=== PATIENT | male | born 1955 | race Caucasian/White ===

== ENCOUNTER → 2018-11-26 | Outpatient (CLI) | payer BC | LOC: GIMAGING 16:15 | PROVIDERS: ATTEND Nurse Practitioner Acute Care | DX: M25.562 Pain in left knee (principal); R93.7 Abnormal findings on diagnostic imaging of other parts of musculoskeletal system | CPT/HCPCS: 73564-PO ==

== ENCOUNTER 2018-11-27 15:31 | Inpatient (IN) | payer BC ==
[2018-11-27] MEDS ORDERED: POLYMYXIN B SULFATE 500,000 UNIT/10 ML SYR IRR ONE (16:12)
[2018-11-27] MEDS ORDERED: BUPIVACAINE/EPI 0.5% 30 ML SDV ONE (16:12)
[2018-11-27] MEDS ORDERED: BACITRACIN 50,000 UNITS/10 ML SYR IRR ONE (16:13)
[2018-11-27] MEDS ORDERED: MIDAZOLAM 2 MG/2 ML VIAL IVP ONE (16:29)
--- NOTE | 2018-11-27 16:32 | PDANEPAE ---
ANE History of Present Illness 63 year with infected left knee ANE Past Medical History - Pulmonary History Hx Sleep Apnea: No ANE Review of Systems Review of systems is: negative Review of Systems: - Exercise capacity Exercise capacity: <4 METS ANE Patient History - Allergies Allergies/Adverse Reactions: No Known Allergies Allergy (Unverified 11/27/18 16:14) - Home Medications Home Medications: Atorvastatin Calcium 20 mg PO 11/27/18 [Last Taken 11/26/18] Levothyroxine [Synthroid 88 mcg (*)] 88 mcg PO DAILY06 11/27/18 [Last Taken 03/12] Lisinopril 5 mg PO 11/27/18 [Last Taken 11/26/18] sulfaSALAzine [Sulfasalazine] 500 mg PO 11/27/18 [Last Taken 11/26/18] - NPO status NPO Since - Liquids (Date): 11/27/18 NPO Since - Liquids (Time): 11:22 NPO Since - Solids (Date): 11/26/18 NPO Since - Solids (Time): 20:30 - Anes Hx Anes Hx: no prior problems ANE Labs/Vital Signs - Vital Signs Blood Pressure: 129/80 Heart Rate: 86 Respiratory Rate: 16 O2 Sat (%): 97 Height: 180.34 cm Weight: 74.843 kg ANE Physical Exam - Airway Neck exam: FROM Mallampati Score: Class 1 - Pulmonary Pulmonary: no respiratory distress - Cardiovascular Cardiovascular: regular rate and rhythym - ASA Status ASA Status: II ANE Anesthesia Plan Anesthesia Plan: GA w LMA
--- NOTE | 2018-11-27 16:46 | PDHPUP ---
History & Physical Update H&P update statement: This history and physical update is based on an assessment of the patient which was completed after admission or registration (within 24 hours), but prior to the surgery/procedure. H&P update: H&P reviewed & patient examined, no change in patient's condition since H&P completed
[2018-11-27] MEDS ORDERED: PIPERACILLIN/TAZO 3.375 GM/DEX 50 ML IV ONE (16:52)
[2018-11-27] MEDS ORDERED: fentaNYL 100 MCG/2 ML INJ ONE ×2 (17:01→18:30)
[2018-11-27] MEDS ORDERED: PROPOFOL 200 MG/20 ML VIAL ONE (17:01)
[2018-11-27] MEDS ORDERED: TDAP ADULT 0.5 ML INJ (BOOSTRIX) IM ONE (18:23)
[2018-11-27] MEDS ORDERED: ONDANSETRON DISINTEGRATING 4 MG TAB PO PRN (18:23)
[2018-11-27] MEDS ORDERED: oxyCODONE IR 5 MG TAB PO PRN ×2 (18:23→18:24)
[2018-11-27] MEDS ORDERED: diphenhydrAMINE 25 MG CAP PO PRN (18:23)
[2018-11-27] MEDS ORDERED: ONDANSETRON 4 MG/2 ML VIAL IVP PRN ×2 (18:23→18:24)
[2018-11-27] MEDS ORDERED: PROMETHAZINE HCL 25 MG/ML INJ IVP PRN ×2 (18:23→18:24)
[2018-11-27] MEDS ORDERED: fentaNYL 100 MCG/2 ML INJ IVP PRN (18:24)
[2018-11-27] MEDS ORDERED: NALOXONE HCL 0.4 MG/ML INJ IVP PRN (18:24)
[2018-11-27] MEDS ORDERED: HYDROmorphONE/DILAUDID 2 MG/ML INJ IVP PRN (18:24)
--- NOTE | 2018-11-27 18:25 | POSTANESTH ---
Post Anesthetic Evaluation Cardiovascular Status: Normal, Stable Respiratory Status: Normal, Stable Level of Consciousness/Mental Status: Can Participate in Eval Pain Control: Adequate, Prn Tx Ordered Nausea/Vomiting Control: Adequate, Prn Tx Ordered Complications Possibly Related to Anesthesia: None Noted
[2018-11-27] MEDS ORDERED: LR 1,000 ML IV SCH (18:30)
[2018-11-27] MEDS ORDERED: HYDROCODONE/APAP 5/325 TAB ONE (18:44)
[2018-11-28] MEDS: ACETAMINOPHEN 325 MG TAB PO SCH ×5 (00:08→23:50)
[2018-11-28] MEDS: KETOROLAC 15 MG/1 ML SDV IVP SCH ×4 (00:09→18:17)
[2018-11-28] MEDS: PIPERACILLIN/TAZO 3.375 GM/DEX 50 ML IV SCH ×5 (00:11→23:50)
[2018-11-28 04:47] LABS: PLATELET COUNT 258 10^3/uL (150-400)
--- NOTE | 2018-11-28 05:51 | GOP ---
DATE OF OPERATION: 11/27/2018 SURGEON: Deondre Navarro MD ANESTHESIA: General. PREOPERATIVE DIAGNOSIS: 1. Left knee foreign body, possibly in joint. 2. Left knee possible septic knee. POSTOPERATIVE DIAGNOSIS: 1. Left knee infected foreign body. 2. Left knee septic arthritis. PROCEDURE PERFORMED: 1. Left knee arthrotomy and drainage for septic knee. 2. Left knee removal of foreign body from knee joint. FINDINGS: ESTIMATED BLOOD LOSS: Less than 5 cc. INDICATIONS: The patient is a 63-year-old male who yesterday was splitting wood in his yard. He fel t something hit his leg when he struck the wedge with the hammer, glanced down and saw there was manpreet valentine. He then went to urgent care where x-rays were taken and he was told to follow up for removal o f the foreign body. He contacted my office today. I reviewed the x-rays. The x-rays were very conc erning for a traumatic arthrotomy of the knee due to the proximity of the foreign body to the joint. I saw the patient in the clinic that same day. He had a tense ballotable effusion with increasing p ain throughout the day. He had difficulty bearing weight and difficulty moving his knee and these we re all Hallmark signs for developing septic knee. I felt that I and D urgently was indicated and gonzalo nned for I and D later that day. We discussed risks and benefits. Risks include pain, bleeding, inf ection, damage to surrounding structures, persistent infection, stiffness, weakness, need for further surgery, wound healing complications. He understood these risks and wished to proceed. DESCRIPTION OF PROCEDURE: The patient was seen in preoperative holding area, was given an opportunit y to ask more questions. All questions were answered. Consent was signed. Surgical site was marked . He was transferred to operative suite. Care was then taken to transfer patient from the rnorwood to the operating room table. Care was taken to pad all bony prominences. Time-out was called includin g surgical and anesthesia teams confirming the surgical site and procedure to be performed. Antibiot ics were withheld until cultures were taken. The left lower extremity was prepped and draped in the usual sterile fashion. He had a small, several millimeter puncture wound over the medial aspect of t he joint line. This was over the medial knee. X-rays showed this small foreign body at the joint li ne. I 1st marked out a small 1.5 cm incision over this puncture site. Prior to making incision, I d id aspirate the knee. I aspirated 60 cc of turbid thick synovial fluid. This had the appearance of s eptic synovial fluid. I then handed this off for cultures. Then gave a dose of Ancef prior to any i ncision. The leg was elevated to exsanguinate and the tourniquet was inflated to 300 mmHg. I then m ronda an incision over the puncture site. Carefully dissected down to the level of the joint capsule. I followed the traumatic rent and this was near to the capsule. There was a gush of turbid septic a ppearing fluid. I visualized the metal foreign body. This was essentially impaled in his capsule an d had punctured his capsule and this was thus a traumatic arthrotomy. After removing the foreign body , I took x-rays to confirm that it was gone. Then made a several centimeter incision over the medial parapatellar area. Carefully dissected down through the skin to the level of the joint, entered the joint through the retinaculum. Then began irrigating. I irrigated copiously with sterile saline ove r 6 L. I ensured that there was good flow through both arthrotomy sites. After irrigating, I then p laced a drain through out the lateral side. At this point, I then closed the capsule with #1 PDS and closed the skin with 2-0 nylon loose closure at the foreign body site and I left loosely closed with a Symoen drain. A sterile dressing was applied. The tourniquet was let down. All bleeding was co ntrolled. He tolerated procedure well and was taken to PACU in stable condition. POSTOP CONDITION: Stable. POSTOPERATIVE PLAN: He will be admitted for IV antibiotics. I spoke to the ID physician prior to [facility] for recommendations on antibiotics. Per the patient's , the wedge was kept in his yard whe re he had possible contamination with horse manure. Thus, we decided on Zosyn. We will follow him c linically and we will follow cultures. /[id number]/MODL
[2018-11-28] MEDS: FAMOTIDINE 20 MG TAB PO SCH (09:06)
--- NOTE | 2018-11-28 09:24 | SOAPPROG ---
SOAP Progress Note Assessment/Plan: Assessment: POD#1 s/p I&D L knee and removal foreign body -GS 3+ pmn, no organisms -knee feels better this am Plan: -IV Zosyn -Await cultures -ID to see this am -Cont drain 11/28/18 09:14 Subjective: Knee feels great. No pain. Was able to sleep Objective: Vital Signs Temp Pulse Resp BP Pulse Ox 36.5 C 76 19 117/61 97 11/28/18 08:00 11/28/18 08:00 11/28/18 08:00 11/28/18 08:00 11/28/18 08:00 Microbiology 11/27/18 17:27 Gram Stain - Final Synovial Fluid - Aspirate Laboratory Results 11/28/18 04:18 11/27/18 11/28/18 11/29/18 05:59 05:59 05:59 Intake Total 1215 1600 Output Total 305 Balance 910 1600 LLE -drain in place, holding suction. Serosang output -NV intact -no pain with gentle passive ROM - ICD10 Worksheet Patient Problems: Problems Problem Status Onset Septic arthritis of knee Acute - ICD10 Problem Qualifiers (1) Septic arthritis of knee Qualifiers: Septic arthritis organism: due to unspecified organism Laterality: left Qualified Code(s): M00.9 - Pyogenic arthritis, unspecified
--- NOTE | 2018-11-28 09:50 | ASMTCMCOM ---
CM Note CM Note Notes: Pt had debridement for L septic knee, foriegn body in knee. ID consulting, awaiting culture. PT/OT evals ordered. CM to follow, d/c needs TBD. Date Signed: 11/28/2018 09:49 AM Electronically Signed By:HERB Duvall
--- NOTE | 2018-11-28 09:53 | PDMN ---
Medical Necessity Medical necessity: [facility] [place]: M605 septic arthritis: 3 days foreign body ( metal ) in knee joint urgent I/D needed, suspect septic arthritis. - OP: L knee arthrotomy and drainage for septic knee, L knee removal of foreign body from knee joint- I/ D consult pending,
--- NOTE | 2018-11-28 12:33 | GCON ---
INPATIENT INFECTIOUS DISEASE CONSULTATION REFERRING PHYSICIAN: Deondre Navarro MD REASON FOR REFERRAL: Left knee septic arthritis. HISTORY OF PRESENT ILLNESS: Patient is a 63-year-old male who is in normally very good health, who s uffered a traumatic arthrotomy of the left knee after splitting wood in his yard on 11/26/2018. The patient was using a wedge to divide the wood and hitting it with a large hammer. After 1 strike, the patient felt an impact on the inside of his left knee and noted that something had gone through his jeans and into his skin on the side of his knee. There was significant bleeding, which prompted him to be evaluated at the urgent care clinic that day. The patient had x-rays that were concerning for a foreign body in the joint. He was referred to Dr. Navarro in Orthopedics the next day. At that point, he had a tense effusion and increased pain. He was taken to the operating room yesterday evening, w here a traumatic arthrotomy was confirmed, and a piece of metal was removed from the knee joint. Flu id obtained at the time of surgery shows 3+ polymorphonuclear white cells. No organisms. Cultures a re pending. In conversation with Dr. Navarro the day of surgery, patient was started on IV Zosyn. He ma intains on this drug. Currently, he is resting comfortably in his hospital room. Family is present. He is in good spirits. He denies any complaints, except for postoperative pain. PAST MEDICAL HISTORY: 1. Hyperlipidemia. 2. Hypertension. 3. Hypothyroidism. PAST SURGICAL HISTORY: Status post trigger finger release. ANTIBIOTICS: Zosyn. ALLERGIES: Patient has no known drug allergies. SOCIAL HISTORY: The patient is . No significant tobacco, alcohol or drug use. He is an avid outdoors person and works often in his garden. FAMILY HISTORY: Reviewed but noncontributory. REVIEW OF SYSTEMS: Other than that detailed above in the History of Present Illness, a comprehensive 10-system review is negative. PHYSICAL EXAMINATION: VITAL SIGNS: Temperature maximum is 36.8. Temperature current is 36.7. Heart rate is 70. Respiratory rate is 18. Blood pressure is 145/70. GENERAL: The patient is a well-for med, well-nourished older male in no acute distress. He is not toxic in appearance. He is alert and oriented x3. He is pleasant in demeanor. HEENT: Normocephalic for age. Atraumatic. No scleral i cterus. No drainage from the nares. Eyes: Lids and conjunctivae within normal limits. Pupils are equal and round bilaterally. SKIN: Warm and dry to the touch. No rash or lesion noted. Postoperat bernadine changes on the left knee. Dressing was not removed. MUSCULOSKELETAL: No muscle belly tendernes s is noted. No joint line effusion or arthritis is seen. NEURO: Cranial nerves 2-12 seem to be int act. Peripheral sensation seems intact in extremities. LABORATORY DATA: Patient has a CBC dated 11/28/2018, shows a white blood cell count of 9.22, hemoglo bin 12.4, hematocrit of 36.9, and a platelet count of 258. Differential shows left shift with 85.7 s egmented neutrophils. MICROBIOLOGIC DATA: Patient has joint fluid cultures from 11/27/2018, of the left knee, shows 3+ cain ymorphonuclear white cells, 1+ mononuclear white cells, no organisms. Culture is pending. ASSESSMENT: Left knee septic arthritis secondary to traumatic arthrotomy. This happened in an envir onment where there was a lot of dirt and potentially manure around. For this reason, broad-spectrum coverage with an extended spectrum penicillin like Zosyn was chosen. Will wait another day before ul timately deciding what antibiotic to use for the course of treatment. I would suspect there is going to be a 4-week course is necessary. Ertapenem is an option for empiric therapy, as well as gram-neg ative or anaerobe coverage that would be once daily. No resistant gram-positive coverage at this poi nt. PLAN: 1. Follow culture results. 2. Plan for a 4-week total course of treatment from surgery. Likelihood this is going to require a PICC line and home IV antibiotics. This was discussed with the patient and the family at length svetlana sainz /[id number]/MODL
[2018-11-28] MEDS: LISINOPRIL 5 MG TAB PO SCH (21:06)
[2018-11-28] MEDS: ASPIRIN EC 81 MG TAB PO SCH (21:07)
[2018-11-28] MEDS: sulfaSALAzine 500 MG TAB PO SCH (21:07)
[2018-11-28] MEDS: ATORVASTATIN CALCIUM 20 MG TAB PO SCH (21:07)
[2018-11-28] MEDS ORDERED: HEPARIN 5,000 UNIT/0.5 ML INJ SC SCH (22:00)
[2018-11-29] MEDS: LEVOTHYROXINE 88 MCG TAB PO SCH (05:46)
[2018-11-29] MEDS: ACETAMINOPHEN 325 MG TAB PO SCH ×4 (05:46→23:48)
[2018-11-29] MEDS: PIPERACILLIN/TAZO 3.375 GM/DEX 50 ML IV SCH ×2 (05:46→12:29)
[2018-11-29] MEDS ORDERED: Herbals/Supplements -Info Only PO SCH (09:00)
[2018-11-29] MEDS: FAMOTIDINE 20 MG TAB PO SCH (09:35)
[2018-11-29] MEDS ORDERED: ALTEPLASE 2 MG VIAL IVP PRN (12:16)
--- NOTE | 2018-11-29 12:18 | PCMIDPN ---
Assessment/Plan: Assessment: Left knee septic arthritis secondary to traumatic arthrotomy. No growth in cultures thus far. Will switch the patient from Zosyn to ertapenem 1 g IV Q 24 hr. Will order a PICC line to be placed. Inter agency form filled out. Still plan on a 4 week course of treatment. Plan: 1. Complete a 4 week course of IV antibiotic. Zosyn switch to ertapenem today. 2. PICC line placement. 3. Home IV antibiotic arrangement. 4. Discharge once above complete. 11/29/18 12:29 Subjective: Patient is sitting in his hospital chair. He has no new complaint apart from some loose stools. Denies significant abdominal pain. Apparently diarrhea and loose stools is very common for him. No fevers or chills. Objective: Zosyn # 2 Vital Signs Temp Pulse Resp BP Pulse Ox 36.8 C 76 14 118/82 H 97 11/29/18 08:00 11/29/18 08:00 11/29/18 08:00 11/29/18 08:00 11/29/18 08:00 Microbiology 11/27/18 17:27 Gram Stain - Final Synovial Fluid - Aspirate Laboratory Results 11/28/18 04:18 11/28/18 11/29/18 11/30/18 05:59 05:59 05:59 Intake Total 1215 2200 Output Total 305 1440 300 Balance 910 760 -300 - Physical Exam General Appearance: WD/WN, alert, no apparent distress, non-toxic Cardiac/Chest: regular rate, rhythm, No tachycardia Skin: normal color, warm/dry, No rash Neuro/Psych: alert, normal mood/affect, oriented x 3 ICD10 Worksheet Patient Problems: Problems Problem Status Onset Septic arthritis of knee Acute
--- NOTE | 2018-11-29 12:21 | PDIAF ---
- Diagnosis Diagnosis: L knee septic arthritis Code Status: Full Code - Medication Management [employer] Supervisor Antibiotics: ertapenem 1 g IV daily Assisted Antibiotic Stop Date: 12/25/18 Discharge Medications: electronically signed and located in the Home Medication List. PICC Care - Routine: Yes - Orders Services needed: Registered Nurse - Labs/Radiology CBC w/diff Date: 12/03/18 (weekly) CMP Date: 12/03/18 (weekly) Call or Fax Lab and Imaging Results to: Dr. Bean Rodriguez - Follow Up Care Current Providers and Referrals: Cecy Montes MD [Primary Care Provider] -
[2018-11-29] MEDS: ERTAPENEM 1 GM in NS 100 ML IV SCH (12:56)
--- NOTE | 2018-11-29 13:48 | ASMTCMCOM ---
CM Note CM Note Notes: CM met with pt and . ID reports pt is getting a PIC line and will be discharged on IV meds once PIC line is placed. Family agreeable to discharge with [facility] and [facility] for home RN. CM submit referrals. CM to follow Plan: Home w/ [facility] & [facility]. Date Signed: 11/29/2018 01:47 PM Electronically Signed By:YULIA Santiago
--- NOTE | 2018-11-29 19:24 | SOAPPROG ---
SOAP Progress Note Assessment/Plan: Assessment: POD#2 s/p I&D L knee and removal foreign body -GS 3+ pmn, no organisms -knee continues to improve. He was able to ambulate around room today and fully WB without pain after drain pulled -clinically improving Plan: -IV abx -Await cultures -Plan is 4 wks IV ertepenem per ID -D/c in am after PICC Subjective: Doing well this evening. Minimal knee pain. In good spirits. To receive PICC tmrw morning Objective: Vital Signs Temp Pulse Resp BP Pulse Ox 36.8 C 77 14 131/70 H 97 11/29/18 16:00 11/29/18 16:00 11/29/18 16:00 11/29/18 16:00 11/29/18 16:00 Microbiology 11/27/18 17:27 Gram Stain - Final Synovial Fluid - Aspirate Laboratory Results 11/28/18 04:18 11/28/18 11/29/18 11/30/18 05:59 05:59 05:59 Intake Total 1215 2200 100 Output Total 305 1440 300 Balance 910 760 -200 L knee -dressing changed, drain removed -incisions clean. Serosang drainage from drain sites. -expected post op soft tissue swelling -no pain with active and passive ROM in mid-arc -able to fully WB with FWW around room without pain - Time Spent With Patient Time Spent With Patient: 15m - Pending Discharge Pending Discharge Within 24 Hours: Yes Pending Discharge Date: 11/30/18 Pending Discharge Time: 11:00 ICD10 Worksheet Patient Problems: Problems Problem Status Onset Septic arthritis of knee Acute - ICD10 Problem Qualifiers (1) Septic arthritis of knee Qualifiers: Septic arthritis organism: due to unspecified organism Laterality: left Qualified Code(s): M00.9 - Pyogenic arthritis, unspecified
[2018-11-29] MEDS ORDERED: IBUPROFEN 600 MG TAB PO PRN (19:30)
[2018-11-29] MEDS: ATORVASTATIN CALCIUM 20 MG TAB PO SCH (20:51)
[2018-11-29] MEDS: LISINOPRIL 5 MG TAB PO SCH (20:51)
[2018-11-29] MEDS: ASPIRIN EC 81 MG TAB PO SCH (20:52)
[2018-11-29] MEDS: sulfaSALAzine 500 MG TAB PO SCH (20:52)
[2018-11-30] MEDS: LEVOTHYROXINE 88 MCG TAB PO SCH (05:26)
[2018-11-30] MEDS: ACETAMINOPHEN 325 MG TAB PO SCH ×2 (05:26→12:42)
[2018-11-30 07:59] VITALS: BP 145/76
[2018-11-30] MEDS: FAMOTIDINE 20 MG TAB PO SCH (08:35)
--- NOTE | 2018-11-30 11:03 | SOAPPROG ---
SOAP Progress Note Assessment/Plan: Assessment: POD#3 s/p I&D L knee and removal foreign body -GS 3+ pmn, no organisms -knee continues to clinically improve Plan: -IV abx -Await cultures -Plan is 4 wks IV ertepenem per ID -D/c today -f/u in 10d Subjective: Knee feels even better. Was able to walk around with less pain Objective: Vital Signs Temp Pulse Resp BP Pulse Ox 36.7 C 84 16 145/76 H 95 11/30/18 07:57 11/30/18 07:57 11/30/18 07:57 11/30/18 07:57 11/30/18 07:57 Microbiology 11/27/18 17:27 Gram Stain - Final Synovial Fluid - Aspirate Laboratory Results 11/28/18 04:18 11/29/18 11/30/18 12/01/18 05:59 05:59 05:59 Intake Total 2200 300 Output Total 1440 600 Balance 760 -300 LLE -dressing changed, the drain site is now dry -swelling decreasing -PROM without pain - Time Spent With Patient Time Spent With Patient: 15 m ICD10 Worksheet Patient Problems: Problems Problem Status Onset Septic arthritis of knee Acute - ICD10 Problem Qualifiers (1) Septic arthritis of knee Qualifiers: Septic arthritis organism: due to unspecified organism Laterality: left Qualified Code(s): M00.9 - Pyogenic arthritis, unspecified
--- NOTE | 2018-11-30 11:48 | ASMTLACE ---
STACEY Length of stay for Answers: 3 days current admission Acuity / Level of Answers: Yes Care: Did the patient have an inpatient admission? # of Emergency department Answers: 0 visits in the last 6 months Score: 6 Date Signed: 11/30/2018 11:47 AM Electronically Signed By:Miriam Mazariegos RN
--- NOTE | 2018-11-30 11:49 | ASMTDCNOTE ---
Case Management Discharge Discharge Order Complete? Answers: Yes Patient to Obtain Answers: Independently Medications Transportation Arranged Answers: Family/Friends Faxed Final Orders Answers: Yes Family Notified Answers: Yes Discharge Comments Notes: Patient discharged home[facility]; [facility] for nursing. Orders sent to both agencies. Patient's to transport home Date Signed: 11/30/2018 11:48 AM Electronically Signed By:Miriam Mazariegos RN
[2018-11-30] MEDS: ERTAPENEM 1 GM in NS 100 ML IV SCH (12:41)
--- NOTE | 2018-11-30 13:16 | GDS ---
OPERATIONS/PROCEDURES PERFORMED: On November 27, 2018, left knee arthrotomy and irrigation and debride ment, and left knee removal of foreign body. ADMITTING DIAGNOSES: Left knee foreign body and septic arthritis. HOSPITAL COURSE: The patient was admitted to my service after the above-mentioned surgery. He was s tarted on IV Zosyn per the recommendations of the ID physician that I had spoken to prior to surgery. He was admitted for IV antibiotics. Awaiting culture results to determine the best course of treat ment. IV antibiotics were medically necessary for the arthritis of the knee. On speaking with Dr. Majo rodriguez, he advised 4 weeks of ertapenem due to the contaminated nature of the injury. By November 30, his PICC line had been placed. I changed his dressings, and we removed his drain. 1 day after drai n removal, his knee had continued to improve clinically. He had minimal pain with active and passive range of motion. He was able to ambulate without pain, and also on November 30, he was cleared for discharge by the physical therapy service, and I felt that he could be discharged home. DISCHARGE INSTRUCTIONS: He will follow up with both myself and the ID department. I will follow him in about 10 days. The plan is for about 4 weeks of ertapenem. /[id number]/MODL
--- NOTE | 2018-11-30 16:36 | ASDISCHSUM ---
Discharge Information Plan Status: Medically Cleared to Leave: Discharge Date:11/30/2018 12:58 PM D/C Disposition: ADT D/C Disposition:Home, Routine, Self-Care Projected Discharge Date:11/29/2018 11:00 AM Transportation at D/C: Discharge Delay Reason: Follow-Up Date:11/29/2018 11:00 AM Discharge Slot: Final Diagnosis: Placement Information Referral Type:Home Infusion Referral ID:[id number] Provider Name:[facility] Address 1:[address] Address 2: City:[place] Selection Factors: State:[place] Referral Type:*Home Health Care Services Referral ID:[id number] Provider Name:[facility] Address 1:[address] Address 2: City:[place] Selection Factors: State:[place] Patient Contact Information Contact Name:RICHELLE Relationship: Address:[address] City:[place] Alternate Phone: [facility]/Zip Code:[place] [address] Email: Financial Information Financial Class:BCOP Primary Plan Desc: OUT OF [facility] Primary Plan Number:[id number] Secondary Plan Desc: Secondary Plan Number: Assessment Information LACE LACE Length of stay for Answers: 3 days current admission Acuity / Level of Answers: Yes Care: Did the patient have an inpatient admission? # of Emergency department Answers: 0 visits in the last 6 months Score: 6 Date Signed: 11/30/2018 11:47 AM Electronically Signed By:Miriam Mazariegos RN [facility] CM Progress Note CM Note CM Note Notes: Pt had debridement for L septic knee, foriegn body in knee. ID consulting, awaiting culture. PT/OT evals ordered. CM to follow, d/c needs TBD. Date Signed: 11/28/2018 09:49 AM Electronically Signed By:HERB Duvall [facility] CM Progress Note CM Note CM Note Notes: CM met with pt and . ID reports pt is getting a PIC line and will be discharged on IV meds once PIC line is placed. Family agreeable to discharge with [facility] and [facility] for home RN. CM submit referrals. CM to follow Plan: Home w/ [facility] & [facility]. Date Signed: 11/29/2018 01:47 PM Electronically Signed By:YULIA Santiago Case Management Discharge Plan Note Case Management Discharge Discharge Order Complete? Answers: Yes Patient to Obtain Answers: Independently Medications Transportation Arranged Answers: Family/Friends Faxed Final Orders Answers: Yes Family Notified Answers: Yes Discharge Comments Notes: Patient discharged home. [facility] will follow for home IV; [facility] for nursing. Orders sent to both agencies. Patient's to transport home Date Signed: 11/30/2018 11:48 AM Electronically Signed By:Miriam Mazariegos, RN Intervention Information
== END 2018-11-30 12:58 | disposition home health service (06) | DRG 489 ==
LOC: FSGY 15:31 → F3E 18:23 → F3N 19:29
PROVIDERS: ADMIT Orthopaedic Surgery Hand Surgery; ATTEND Orthopaedic Surgery Hand Surgery
PROC: 0S9D0ZX Drainage of Left Knee Joint, Open Approach, Diagnostic (ICD-10-PCS; principal; 2018-11-27 16:45)
PROC: 0SCD0ZZ Extirpation of Matter from Left Knee Joint, Open Approach (ICD-10-PCS; principal; 2018-11-27 16:45)
PROC: BQ181ZZ Fluoroscopy of Left Knee using Low Osmolar Contrast (ICD-10-PCS; principal; 2018-11-27 16:45)
PROC: 02HV33Z Insertion of Infusion Device into Superior Vena Cava, Percutaneous Approach (ICD-10-PCS; 2018-11-30)
PROC: B5181ZZ Fluoroscopy of Superior Vena Cava using Low Osmolar Contrast (ICD-10-PCS; 2018-11-30)
PROC: B54MZZA Ultrasonography of Right Upper Extremity Veins, Guidance (ICD-10-PCS; 2018-11-30)
DX: M00.9 Pyogenic arthritis, unspecified (principal); S80.252A Superficial foreign body, left knee, initial encounter; W45.8XXA Other foreign body or object entering through skin, initial encounter; W26.8XXA Contact with other sharp object(s), not elsewhere classified, initial encounter; Y92.007 Garden or yard of unspecified non-institutional (private) residence as the place of occurrence of the external cause; Y93.H2 Activity, gardening and landscaping; Z23 Encounter for immunization
CPT/HCPCS: 97110-GP; 97116-GP; 97161-GP; 97165-GO; 97530-GP; 97535-GO; C1751; J1335; J1885; J2250; J2543; J2704; J3010